=== PATIENT | female | born 1950 | race Hispanic/Latino ===

== ENCOUNTER → 2020-12-09 | Day surgery (SDC) | payer MEDICARE ==
[2020-12-06 10:12] LABS: BASOPHILS % 0.2 % (0.0-1.0); EOSINOPHILS # (AUTO) 0.1 (0.0-0.4); EOSINOPHILS % 2.4 % (0.0-6.0); HEMATOCRIT 35.3 % (34.2-44.1); HEMOGLOBIN 11.4 g/dL (12.0-16.0); LYMPHOCYTES # (AUTO) 0.8 (1.0-3.2); LYMPHOCYTES % 14.4 % (18.0-39.1); MEAN CORPUSCULAR HEMOGLOBIN 28.1 pg (28-32); MEAN CORPUSCULAR HGB CONC 32.3 g/dL (31-35); MEAN CORPUSCULAR VOLUME 87.2 fL (81-99); MONOCYTES # (AUTO) 0.7 (0.2-0.8); MONOCYTES % 11.6 % (4.4-11.3); NEUTROPHILS # (AUTO) 4.2 (2.1-6.9); NEUTROPHILS % 71.1 % (38.7-80.0); PLATELET COUNT 273 x10e3/uL (140-360); RED BLOOD COUNT 4.05 x10e6/uL (3.6-5.1); RED CELL DISTRIBUTION WIDTH 17.9 % (11.7-14.4)
[2020-12-06 10:39] LABS: ALANINE AMINOTRANSFERASE 28 IU/L (0-55); ALBUMIN 3.9 g/dL (3.5-5.0); ALBUMIN/GLOBULIN RATIO 0.8 (0.8-2.0); ALKALINE PHOSPHATASE 186 IU/L (40-150); BLOOD UREA NITROGEN 13 mg/dL (7-26); BUN/CREATININE RATIO 20 (6-25); CARBON DIOXIDE 24 mmol/L (22-29); CHLORIDE 106 mmol/L (98-107); CREATININE, SERUM 0.66 mg/dL (0.57-1.11); EST GLOMERULAR FILTRATION RATE > 60 ML/MIN (60-); GLUCOSE 119 mg/dL (74-118); SODIUM 140 mmol/L (136-145)
[~2020-12-09] VITALS: Ht 154.9 cm; Wt 74.8 kg
[~2020-12-09] MED LIST: ALPRAZOLAM 0.5 MG TAB ONE; AMLODIPINE BESY10 MG PO; ASPIRIN81 MG PO; DIPHENHYDRAMINE HCL 25 MG CAP ONE; ERGOCALCIF8000 UNIT/ PO; FENTANYL CITRATE/PF 100MCG/2 ML INJ ONE; FOLIC ACID0.4 MG PO; HEPARIN SOD (PORCINE) 1000 UNIT/ML 30ML ONE; HEPARIN SOD/SOD CHLORIDE 2,000 ML ONE; IOPAMIDOL 370 MG/ML 200 ML INFUS..BTL INJ ONE; LEXAPRO10 MG PO; LIDOCAINE HCL 2% LOCAL 20 ML VIAL ONE; LIPITOR20 MG PO; LORATADINE10 MG PO; LOSARTAN POTASS25 MG PO; MELOXICAM7.5 MG PO; METROTREXATE PO; MIDAZOLAM HCL 2 MG/2 ML VIAL ONE; NITROGLYCERIN/D5W 200 MCG/ML 250 ML ONE; OMEPRAZOLE20 MG PO; PLAVIX75 MG PO; PREDNISONE5 M1 PO; SODIUM CHLORIDE 0.9% 1000ML 1,000 ML ONE; SYNTHROID100 MCG PO; TRAZODONE HCL50 MG PO; ULTRAM 50MG50 MG PO; VERAPAMIL HCL 2.5 MG/ML 2 ML VIAL ONE; XELJANZ5 MG; vit d3 PO
[2020-12-09 10:00] VITALS: BP 152/71
[2020-12-09 13:31] VITALS: BP 118/58
[2020-12-09 14:00] VITALS: BP 140/97
[2020-12-09 14:15] VITALS: BP 160/75
[2020-12-09 14:30] VITALS: BP 162/88
[2020-12-09 15:00] VITALS: BP 165/78
== END | disposition home or self-care (01) ==
LOC: CATH LAB 09:46
PROVIDERS: ATTEND Internal Medicine Interventional Cardiology
DX: I25.118 Atherosclerotic heart disease of native coronary artery with other forms of angina pectoris (principal); R94.39 Abnormal result of other cardiovascular function study; I10 Essential (primary) hypertension; Z95.5 Presence of coronary angioplasty implant and graft; M06.9 Rheumatoid arthritis, unspecified; Z01.812 Encounter for preprocedural laboratory examination; Z20.822 Contact with and (suspected) exposure to COVID-19; Z79.82 Long term (current) use of aspirin; Z68.31 Body mass index [BMI] 31.0-31.9, adult; Z82.49 Family history of ischemic heart disease and other diseases of the circulatory system
CPT/HCPCS: 36415; 76937; 80053; 83880; 85025; 93458; C1887; J1644; J2001; J2250; J3010; J7030; Q9967; U0002 ×2; 99152

== ENCOUNTER → 2021-04-14 | Day surgery (SDC) | payer MEDICARE ==
[2021-04-12 09:17] LABS: BASOPHILS % 0.1 % (0.0-1.0); HEMATOCRIT 37.5 % (34.2-44.1); HEMOGLOBIN 12.1 g/dL (12.0-16.0); LYMPHOCYTES # (AUTO) 0.8 (1.0-3.2); LYMPHOCYTES % 8.2 % (18.0-39.1); MEAN CORPUSCULAR HEMOGLOBIN 28.1 pg (28-32); MEAN CORPUSCULAR HGB CONC 32.3 g/dL (31-35); MEAN CORPUSCULAR VOLUME 87.2 fL (81-99); MONOCYTES # (AUTO) 0.6 (0.2-0.8); MONOCYTES % 5.5 % (4.4-11.3); NEUTROPHILS # (AUTO) 8.7 (2.1-6.9); NEUTROPHILS % 84.8 % (38.7-80.0); PLATELET COUNT 321 x10e3/uL (140-360); RED CELL DISTRIBUTION WIDTH 18.6 % (11.7-14.4)
[2021-04-12 09:37] LABS: ALBUMIN/GLOBULIN RATIO 0.7 (0.8-2.0); ANION GAP 13.9 mmol/L (8-16); CALCIUM 9.4 mg/dL (8.4-10.2); CREATININE, SERUM 0.73 mg/dL (0.57-1.11); POTASSIUM 3.9 mmol/L (3.5-5.1)
[2021-04-14] VITALS (22 sets, daily range): BP systolic 119–179; BP diastolic 58–90
[~2021-04-14] VITALS: Ht 154.9 cm; Wt 72.1 kg
[~2021-04-14] MED LIST changes: -ALPRAZOLAM 0.5 MG TAB ONE; +ASPIRIN 325 MG TAB ONE; +BIVALRIUDIN 250 MG/VIAL VIAL IV ONE; -DIPHENHYDRAMINE HCL 25 MG CAP ONE; +GABAPENTIN100 MG PO; -HEPARIN SOD (PORCINE) 1000 UNIT/ML 30ML ONE; +MEDROL4 MG PO; -NITROGLYCERIN/D5W 200 MCG/ML 250 ML ONE; +PRASUGREL 10 MG TAB ONE; +SODIUM CHLORIDE 0.9% 50ML 50 ML ONE
== END | disposition home or self-care (01) ==
LOC: CATH LAB 10:36
PROVIDERS: ATTEND Internal Medicine Interventional Cardiology
DX: I25.118 Atherosclerotic heart disease of native coronary artery with other forms of angina pectoris (principal); R94.39 Abnormal result of other cardiovascular function study; I10 Essential (primary) hypertension; E07.9 Disorder of thyroid, unspecified; Z01.812 Encounter for preprocedural laboratory examination; Z20.822 Contact with and (suspected) exposure to COVID-19; Z79.82 Long term (current) use of aspirin; Z68.31 Body mass index [BMI] 31.0-31.9, adult; Z82.49 Family history of ischemic heart disease and other diseases of the circulatory system
CPT/HCPCS: 36415; 80053; 83880; 85025; C1874; C9600; J0583; J2001; J2250; J3010; J7030; Q9967; U0002; 92928; 99152